=== PATIENT | female | born 1940 | race Caucasian/White ===

== ENCOUNTER 2021-06-23 11:55 | Inpatient (IN) | payer OTHER, BC ==
[2021-06-23 13:43] LABS: BASO % 0.6 % (0-2.0); EOS % 1.3 % (0-4.5); HEMATOCRIT 36.6 % (32.4-45.2); LYMPH % 14.9 % (8-40); MCH 27.7 pg (25.7-33.7); MCHC 32.9 g/dl (32.0-36.0); MEAN CELL VOLUME 84.3 fl (80-96); MEAN PLT VOLUME 7.5 fl (7.5-11.1); MONO % 7.8 % (3.8-10.2); NEUT % 75.4 % (42.8-82.8); PLATELET COUNT 282 10^3/uL (134-434); RBC 4.34 M/mm3 (3.60-5.2); RDW 15.6 % (11.6-15.6)
[2021-06-23 13:57] LABS: CHLORIDE 106 mmol/L (98-107); SODIUM 141 mmol/L (136-145)
[2021-06-23 13:59] LABS: CALCIUM 8.5 mg/dL (8.5-10.1)
[2021-06-23 14:00] LABS: ALBUMIN 2.8 g/dl (3.4-5.0); ANION GAP 4 MMOL/L (8-16); BLOOD UREA NITROGEN 7.9 mg/dL (7-18); CO2 31 mmol/L (21-32); GLUCOSE,RANDOM 81 mg/dL (74-106)
[2021-06-23 14:03] LABS: CREATININE 0.6 mg/dL (0.55-1.3); SGOT/AST 24 U/L (15-37); SGPT/ALT 18 U/L (13-61)
[2021-06-23 14:04] LABS: BILIRUBIN,TOTAL 0.6 mg/dL (0.2-1)
[2021-06-23 14:05] LABS: TOT PROT 6.8 g/dl (6.4-8.2)
[2021-06-23 14:06] LABS: ALK PHOS 99 U/L (45-117)
[2021-06-23 14:08] LABS: N-TERMINAL BNP 906.2 pg/ml (5-450)
[2021-06-23] MEDS ORDERED: ACETAMINOPHEN 325 MG TABLET (FP) PO PRN (15:57)
[2021-06-23] MEDS ORDERED: APIXABAN 5 MG TABLET PO SCH (22:00)
[2021-06-23] MEDS ORDERED: ATORVASTATIN CA 20 MG TABLET (FP) ONE (22:10)
[2021-06-23] MEDS ORDERED: APIXABAN 2.5 MG TABLET ONE (22:11)
[2021-06-23] MEDS: APIXABAN 2.5 MG TABLET PO SCH (22:16)
[2021-06-23] MEDS: ATORVASTATIN CA 20 MG TABLET (FP) PO SCH (22:16)
[2021-06-23] MEDS: SOTALOL HCL 80 MG TABLET (FP) PO SCH (23:24)
[2021-06-24 03:05] VITALS: BMI 20.3
[2021-06-24 08:14] LABS: HEMATOCRIT 35.4 % (32.4-45.2); HEMOGLOBIN 11.9 GM/dL (10.7-15.3); MCHC 33.7 g/dl (32.0-36.0); MEAN CELL VOLUME 83.1 fl (80-96); MEAN PLT VOLUME 7.9 fl (7.5-11.1); PLATELET COUNT 297 10^3/uL (134-434); RBC 4.26 M/mm3 (3.60-5.2); RDW 15.4 % (11.6-15.6); WHITE BLOOD COUNT 5.9 K/mm3 (4.0-10.0)
[2021-06-24 08:25] LABS: ALBUMIN 2.6 g/dl (3.4-5.0); CALCIUM 8.5 mg/dL (8.5-10.1)
[2021-06-24 08:26] LABS: BLOOD UREA NITROGEN 8.3 mg/dL (7-18)
[2021-06-24 08:28] LABS: CREATININE 0.6 mg/dL (0.55-1.3)
[2021-06-24 08:29] LABS: BILIRUBIN,TOTAL 0.8 mg/dL (0.2-1); TOT PROT 6.3 g/dl (6.4-8.2)
[2021-06-24] MEDS: SOTALOL HCL 80 MG TABLET (FP) PO SCH ×2 (09:10→22:14)
[2021-06-24] MEDS: ASPIRIN COATED 81 MG TABLET.EC PO SCH (09:10)
[2021-06-24] MEDS: APIXABAN 2.5 MG TABLET PO SCH ×2 (09:10→22:14)
[2021-06-24] MEDS: ATORVASTATIN CA 20 MG TABLET (FP) PO SCH (22:14)
[2021-06-25] MEDS: ASPIRIN COATED 81 MG TABLET.EC PO SCH (12:12)
[2021-06-25] MEDS: SOTALOL HCL 80 MG TABLET (FP) PO SCH (12:12)
[2021-06-25] MEDS: APIXABAN 2.5 MG TABLET PO SCH (12:12)
[2021-06-25 14:47] VITALS: BP 125/56; PULSE 58; TEMP 96.8
[2021-06-26] MEDS ORDERED: metoPROLOL SUCCINATE 25 MG TAB.SR.24H (FP) PO SCH (10:00)
== END 2021-06-25 18:54 | disposition home or self-care (01) | DRG 312 ==
LOC: JER 11:55 → JERBED 15:35 → OBSVTOIN 15:53 → J4W 06-24 00:19
PROVIDERS: ADMIT Family Medicine; ATTEND Family Medicine
DX: R55 Syncope and collapse (principal); I48.19 Other persistent atrial fibrillation; I10 Essential (primary) hypertension; Z79.01 Long term (current) use of anticoagulants; E78.5 Hyperlipidemia, unspecified; I25.10 Atherosclerotic heart disease of native coronary artery without angina pectoris; M54.5 Low back pain; Z86.73 Personal history of transient ischemic attack (TIA), and cerebral infarction without residual deficits; I34.0 Nonrheumatic mitral (valve) insufficiency; I36.1 Nonrheumatic tricuspid (valve) insufficiency; I27.20 Pulmonary hypertension, unspecified; G30.9 Alzheimer's disease, unspecified; F02.80 Dementia in other diseases classified elsewhere, unspecified severity, without behavioral disturbance, psychotic disturbance, mood disturbance, and anxiety; F01.50 Vascular dementia, unspecified severity, without behavioral disturbance, psychotic disturbance, mood disturbance, and anxiety
CPT/HCPCS: 36415; 70450-TC; 70551-TC; 71045-TC-FY; 80053; 80061; 82550; 82607; 83036; 83880; 84439; 84443; 84484; 85025; 85027; 85651; 93005; 93010; 93306-TC; 93880-TC; 97116-GP; 97161-GP; 99285-25; C9803; G0378; U0003; U0005